=== PATIENT | male | born 1990 | race Two or more races ===

== ENCOUNTER 2023-02-09 18:18 | Emergency (ER) | payer MEDICAID ==
[~2023-02-09] VITALS: Ht 172.7 cm; Wt 72.0 kg
[2023-02-09 18:31] VITALS: BP 105/61; PULSE 64; RESP 20; TEMP 98; O2SAT 100
[2023-02-09 19:22] LABS: CLARITY URINE CLEAR (CLEAR); COLOR URINE YELLOW (YELLOW); GLUCOSE URINE NEGATIVE (NEGATIVE); KETONES URINE NEGATIVE (NEGATIVE); LEUKOCYTE ESTERASE URINE NEGATIVE (NEGATIVE); NITRITE URINE NEGATIVE (NEGATIVE); OCCULT BLOOD URINE NEGATIVE (NEGATIVE); PH URINE 7.5 (4.5-8.0); PROTEIN URINE NEGATIVE (NEGATIVE); SPECIFIC GRAVITY URINE 1.016 (1.005-1.030); UROBILINOGEN URINE 0.2 E.U./dL (0.2-1.0)
[2023-02-09 20:01] LABS: ALANINE AMINOTRANSFERASE 14 IU/L (10-49); ALBUMIN 4.4 g/dL (3.2-4.8); ASPARTATE AMINOTRANSFERASE 19 IU/L (<34); BILIRUBIN TOTAL 0.9 mg/dL (0.1-1.0); CALCIUM 9.3 mg/dL (8.7-10.4); CARBON DIOXIDE 26 mEq/L (21-32); CHLORIDE 105 mEq/L (98-107); CREATININE 0.8 mg/dL (0.6-1.3); GLUCOSE 84 mg/dL (70-105); POTASSIUM 3.7 mEq/L (3.5-5.1); SODIUM 140 mEq/L (136-145); UREA NITROGEN BLOOD 6 mg/dL (9-23)
[2023-02-09 20:02] LABS: BASOPHILS % 0.5 % (0.0-2.0); EOSINOPHILS % 1.6 % (0.0-5.0); HEMATOCRIT. 44.5 % (42.0-52.0); HEMOGLOBIN. 15.1 g/dL (14.0-18.0); LYMPHOCYTES % 33.3 % (20.0-50.0); MEAN CORPUSCULAR HEMOGLOBIN 28.7 pg (28.0-32.0); MEAN CORPUSCULAR VOLUME 84.5 fL (80.0-94.0); MONOCYTES % 6.3 % (2.0-8.0); NEUTROPHILS % 58.3 % (40.0-76.0); PLATELET 190 x1000/uL (130-400); RED BLOOD CELL COUNT 5.27 mill/uL (4.7-6.1); RED CELL DISTRIBUTION WIDTH 13.4 % (11.6-14.6); WHITE BLOOD COUNT 8.3 x1000/uL (4.5-11.0)
[2023-02-09 20:16] LABS: TROPONIN I HIGH SENSITIVITY < 4 ng/L (3.0-53)
[2023-02-09 21:56] LABS: TROPONIN I HIGH SENSITIVITY < 4 ng/L (3.0-53)
[2023-02-09] MEDS ORDERED: IBUP-2029 MT (22:41)
== END 2023-02-09 23:05 | disposition home or self-care (01) ==
LOC: ER 20:35
DX: R10.9 Unspecified abdominal pain (principal); M79.10 Myalgia, unspecified site; Z20.822 Contact with and (suspected) exposure to COVID-19
CPT/HCPCS: 99284; 74176; 71045; 87426; 80053; 81003; 83690; 85025; 84484; 87804 ×2; 36415; C9803

== ENCOUNTER 2023-10-23 08:47 | Inpatient (IN) | payer MEDICAID, OTHER ==
[~2023-10-23] VITALS: Ht 170.2 cm; Wt 59.0 kg
[~2023-10-23 08:47] MED LIST: IBUP-2029 MT
[2023-10-23 10:10] LABS: BASOPHILS % 0.8 % (0.0-2.0); EOSINOPHILS % 1.8 % (0.0-5.0); HEMATOCRIT. 47.3 % (42.0-52.0); HEMOGLOBIN. 15.7 g/dL (14.0-18.0); LYMPHOCYTES % 37.8 % (20.0-50.0); MEAN CORPUSCULAR HEMOGLOBIN 27.8 pg (28.0-32.0); MEAN CORPUSCULAR HGB CONC 33.1 g/dL (31.0-37.0); MEAN CORPUSCULAR VOLUME 83.8 fL (80.0-94.0); MEAN PLATELET VOLUME 9.8 fl (7.4-10.4); MONOCYTES % 5.5 % (2.0-8.0); NEUTROPHILS % 54.1 % (40.0-76.0); PLATELET 179 x1000/uL (130-400); RED BLOOD CELL COUNT 5.64 mill/uL (4.7-6.1); RED CELL DISTRIBUTION WIDTH 13.7 % (11.6-14.6); WHITE BLOOD COUNT 5.2 x1000/uL (4.5-11.0)
[2023-10-23 10:22] LABS: CHLORIDE 109 mEq/L (98-107)
[2023-10-23 10:23] LABS: SODIUM 140 mEq/L (136-145)
[2023-10-23 10:24] LABS: CALCIUM 9.2 mg/dL (8.7-10.4); CARBON DIOXIDE 27 mEq/L (21-32)
[2023-10-23 10:29] LABS: CREATININE 0.9 mg/dL (0.6-1.3); GLUCOSE 99 mg/dL (70-105); UREA NITROGEN BLOOD 8 mg/dL (9-23)
[2023-10-23 10:30] LABS: ALANINE AMINOTRANSFERASE 15 IU/L (10-49)
[2023-10-23 10:31] LABS: ALBUMIN 4.6 g/dL (3.2-4.8); ASPARTATE AMINOTRANSFERASE 19 IU/L (<34); BILIRUBIN DIRECT 0.2 mg/dL (<=3.0); BILIRUBIN TOTAL 0.8 mg/dL (0.1-1.0); PROTEIN TOTAL 7.7 g/dL (6.0-8.3)
[2023-10-23 10:32] LABS: TROPONIN I HIGH SENSITIVITY < 4 ng/L (3.0-53)
[2023-10-23] MEDS: IBUPROFEN 400MG TABLET PO ONE (12:21)
[2023-10-23 20:10] VITALS: BP 99/59; PULSE 52; RESP 18; TEMP 36.44736; TEMP 36.4736; O2SAT 99
[2023-10-23] MEDS: FAMOTIDINE 20MG TABLET PO SCH (21:29)
[2023-10-24] VITALS: BP 98/50; PULSE 54; RESP 16; TEMP 36.33624; O2SAT 96
[2023-10-24 04:00] VITALS: BP 98/60; PULSE 65; RESP 16; TEMP 36.28068; O2SAT 98
[2023-10-24 06:25] LABS: CHLORIDE 110 mEq/L (98-107); POTASSIUM 3.7 mEq/L (3.5-5.1); SODIUM 140 mEq/L (136-145)
[2023-10-24 06:26] LABS: CALCIUM 8.9 mg/dL (8.7-10.4); CARBON DIOXIDE 24 mEq/L (21-32)
[2023-10-24 06:31] LABS: GLUCOSE 91 mg/dL (70-105); UREA NITROGEN BLOOD 10 mg/dL (9-23)
[2023-10-24 06:34] LABS: THYROID STIMULATING HORMONE 0.69 uIU/mL (0.55-4.78)
[2023-10-24 08:00] VITALS: BP 95/47; PULSE 48; RESP 16; TEMP 36.55848; O2SAT 99
[2023-10-24 08:13] LABS: BASOPHILS % 0.8 % (0.0-2.0); EOSINOPHILS % 2.5 % (0.0-5.0); HEMATOCRIT. 43.6 % (42.0-52.0); HEMOGLOBIN. 14.6 g/dL (14.0-18.0); LYMPHOCYTES % 38.1 % (20.0-50.0); MEAN CORPUSCULAR HEMOGLOBIN 28.5 pg (28.0-32.0); MEAN CORPUSCULAR HGB CONC 33.6 g/dL (31.0-37.0); MEAN CORPUSCULAR VOLUME 84.9 fL (80.0-94.0); MEAN PLATELET VOLUME 10.6 fl (7.4-10.4); MONOCYTES % 8.1 % (2.0-8.0); NEUTROPHILS % 50.5 % (40.0-76.0); PLATELET 167 x1000/uL (130-400); RED BLOOD CELL COUNT 5.14 mill/uL (4.7-6.1); RED CELL DISTRIBUTION WIDTH 13.3 % (11.6-14.6); WHITE BLOOD COUNT 7.2 x1000/uL (4.5-11.0)
[2023-10-24] MEDS: ACETAMINOPHEN 325MG TABLET PO PRN (09:09)
[2023-10-24 12:30] VITALS: BP 93/49; PULSE 56; RESP 16; TEMP 36.50292; O2SAT 98
[2023-10-24 16:00] VITALS: BP 106/65; PULSE 59; RESP 16; TEMP 36.50292; O2SAT 98
[2023-10-24 20:00] VITALS: BP 111/69; PULSE 54; RESP 20; TEMP 36.72516; O2SAT 99
[2023-10-25] VITALS: BP 96/57; PULSE 64; RESP 18; TEMP 36.78072; O2SAT 97
[2023-10-25 04:00] VITALS: BP 103/70; PULSE 61; RESP 18; TEMP 36.83628; O2SAT 97
[2023-10-25 06:26] LABS: CHLORIDE 109 mEq/L (98-107); POTASSIUM 3.8 mEq/L (3.5-5.1); SODIUM 139 mEq/L (136-145)
[2023-10-25 06:27] LABS: CALCIUM 9.3 mg/dL (8.7-10.4); CARBON DIOXIDE 23 mEq/L (21-32)
[2023-10-25 06:32] LABS: CREATININE 0.9 mg/dL (0.6-1.3); GLUCOSE 101 mg/dL (70-105); TRIGLYCERIDE 198 mg/dL (0-150); UREA NITROGEN BLOOD 9 mg/dL (9-23)
[2023-10-25 06:33] LABS: LDL CHOLESTEROL 138 mg/dL (5-100)
[2023-10-25 06:34] LABS: CHOLESTEROL 186 mg/dL (<200); HDL CHOLESTEROL 29 mg/dL (>55)
[2023-10-25 06:46] LABS: BASOPHILS % 0.6 % (0.0-2.0); EOSINOPHILS % 2.5 % (0.0-5.0); HEMATOCRIT. 42.6 % (42.0-52.0); HEMOGLOBIN. 14.5 g/dL (14.0-18.0); LYMPHOCYTES % 42.8 % (20.0-50.0); MEAN CORPUSCULAR HEMOGLOBIN 28.9 pg (28.0-32.0); MEAN CORPUSCULAR HGB CONC 34.1 g/dL (31.0-37.0); MEAN CORPUSCULAR VOLUME 84.6 fL (80.0-94.0); MEAN PLATELET VOLUME 9.9 fl (7.4-10.4); MONOCYTES % 7.9 % (2.0-8.0); NEUTROPHILS % 46.2 % (40.0-76.0); PLATELET 171 x1000/uL (130-400); RED BLOOD CELL COUNT 5.03 mill/uL (4.7-6.1); RED CELL DISTRIBUTION WIDTH 13.4 % (11.6-14.6); WHITE BLOOD COUNT 5.7 x1000/uL (4.5-11.0)
[2023-10-25 08:00] VITALS: BP 106/55; PULSE 53; RESP 16; TEMP 36.50292; O2SAT 98
[2023-10-25 12:00] VITALS: BP 101/61; PULSE 59; RESP 16; TEMP 36.61404; O2SAT 97
[2023-10-25] MEDS: ASPIRIN 81MG EC TABLET PO SCH (12:27)
[2023-10-25] MEDS: MAGNESIUM OXIDE 400MG TABLET PO SCH (12:27)
[2023-10-25 16:00] VITALS: BP 113/74; PULSE 78; RESP 16; TEMP 36.89184; O2SAT 97
[2023-10-25 20:00] VITALS: BP 107/59; PULSE 63; RESP 17; TEMP 36.6696; O2SAT 99
[2023-10-25] MEDS: ATORVASTATIN CALCIUM 10MG TABLET PO SCH (21:01)
[2023-10-26 04:00] VITALS: BP 150/66; PULSE 68; RESP 18; TEMP 36.61404; O2SAT 100
[2023-10-26 07:04] LABS: BASOPHILS % 0.5 % (0.0-2.0); EOSINOPHILS % 2.7 % (0.0-5.0); HEMATOCRIT. 44.7 % (42.0-52.0); HEMOGLOBIN. 15.1 g/dL (14.0-18.0); LYMPHOCYTES % 43.1 % (20.0-50.0); MEAN CORPUSCULAR HEMOGLOBIN 28.3 pg (28.0-32.0); MEAN CORPUSCULAR HGB CONC 33.7 g/dL (31.0-37.0); MEAN PLATELET VOLUME 10.1 fl (7.4-10.4); MONOCYTES % 7.8 % (2.0-8.0); NEUTROPHILS % 45.9 % (40.0-76.0); PLATELET 177 x1000/uL (130-400); RED BLOOD CELL COUNT 5.31 mill/uL (4.7-6.1); RED CELL DISTRIBUTION WIDTH 13.4 % (11.6-14.6); WHITE BLOOD COUNT 6.2 x1000/uL (4.5-11.0)
[2023-10-26 07:14] LABS: CARBON DIOXIDE 27 mEq/L (21-32); CHLORIDE 106 mEq/L (98-107); POTASSIUM 4.3 mEq/L (3.5-5.1); SODIUM 140 mEq/L (136-145)
[2023-10-26 07:16] LABS: CALCIUM 9.4 mg/dL (8.7-10.4)
[2023-10-26 07:20] LABS: CREATININE 0.9 mg/dL (0.6-1.3); GLUCOSE 92 mg/dL (70-105)
[2023-10-26 07:21] LABS: UREA NITROGEN BLOOD 8 mg/dL (9-23)
[2023-10-26 07:23] LABS: TROPONIN I HIGH SENSITIVITY < 4 ng/L (3.0-53)
[2023-10-26 08:00] VITALS: BP 103/55; PULSE 55; RESP 18; TEMP 36.50292; O2SAT 99
[2023-10-26 12:00] VITALS: BP 102/62; PULSE 55; RESP 16; TEMP 35.78064; O2SAT 96
[2023-10-26] MEDS ORDERED: LIP40 MT (14:29)
[2023-10-26 16:29] VITALS: BP 102/62; PULSE 55; TEMP 96.4; O2SAT 96
[2023-10-26] MEDS ORDERED: ATORVASTATIN CALCIUM 40MG TABLET PO SCH (21:00)
== END 2023-10-26 17:05 | disposition home or self-care (01) | DRG 203 ==
LOC: ER 08:53 → EDBEDREQ 16:10 → 5WST 17:55 → 7WST 20:01
PROVIDERS: ADMIT Internal Medicine; ATTEND Internal Medicine
DX: R07.89 Other chest pain (principal); E78.5 Hyperlipidemia, unspecified; E83.42 Hypomagnesemia; R00.1 Bradycardia, unspecified; Z20.822 Contact with and (suspected) exposure to COVID-19; M25.512 Pain in left shoulder; R94.31 Abnormal electrocardiogram [ECG] [EKG]; Z79.82 Long term (current) use of aspirin; Z79.899 Other long term (current) drug therapy
CPT/HCPCS: 36415; 71045; 80048; 80061; 80076; 83735; 83880; 84443; 84484; 85025; 87426; 93005; 93306; 99285